=== PATIENT | female | born 1965 | race Caucasian/White ===

== ENCOUNTER 2017-07-25 10:58 | Emergency (ER) | payer OTHER ==
[~2017-07-25] VITALS: Ht 172.7 cm; Wt 68.0 kg
[2017-07-25 11:50] LABS: ABSOLUTE NEUTROPHILS 4.4 thou/uL (1.4-8.2); BASOPHILS 2.8 % (0.0-2.0); EOSINOPHILS 1.6 % (0.0-3.0); HEMATOCRIT 40.5 % (37.0-47.0); HEMOGLOBIN 13.7 gm/dL (12.0-15.0); LYMPHOCYTES 31.1 % (24.0-44.0); MCH 31.1 pg (26.0-34.0); MCHC 33.9 g/dL (28.0-37.0); MCV 91.9 fL (80.0-100.0); MONOCYTES 6.4 % (1.0-8.0); PLATELET COUNT 274 thou/uL (150-400); POLYS 58.1 % (36.0-66.0); RDW 13.6 % (10.5-14.5); WBC 7.5 thou/uL (4.0-11.0)
[2017-07-25 12:00] LABS: CALCIUM 9.4 mg/dL (8.5-10.1); CREATININE 1.1 mg/dL (0.6-1.0); POTASSIUM 3.5 mmol/L (3.5-5.1)
[2017-07-25 12:03] LABS: ALBUMIN 3.3 g/dL (3.4-5.0); TOTAL BILIRUBIN 0.4 mg/dL (<0.1-1.0); TOTAL PROTEIN 8.8 g/dL (6.4-8.2)
[2017-07-25 12:12] LABS: MANUAL DIFF NO
[2017-07-25] MEDS ORDERED: BACTRIM DS TAB1 EACH PO (12:44)
[2017-07-25 15:38] VITALS: BP 128/76
== END 2017-07-25 15:39 | disposition left against medical advice (07) ==
LOC: EDBD 10:58 → ER 10:58
PROVIDERS: Physician Assistant
DX: S81.802A Unspecified open wound, left lower leg, initial encounter (principal); S81.801A Unspecified open wound, right lower leg, initial encounter; L03.116 Cellulitis of left lower limb; L03.115 Cellulitis of right lower limb; E11.9 Type 2 diabetes mellitus without complications; B87.89 Myiasis of other sites; Z85.6 Personal history of leukemia; X58.XXXA Exposure to other specified factors, initial encounter; Y93.89 Activity, other specified; Y92.89 Other specified places as the place of occurrence of the external cause; Y99.8 Other external cause status

== ENCOUNTER 2017-07-25 19:45 | Inpatient (IN) | payer OTHER ==
[~2017-07-25] VITALS: Ht 172.7 cm; Wt 74.8 kg
--- NOTE | ~2017-07-25 | S ---
[facility] [place] [address] SURGICAL PATH RPT PROCEDURE Name: VASILIY BERKOWITZ Room #: 200-I ADM IN M.R.#: [id number] Admission: 07/25/17 Date of : 67 Discharge: Report #: [id number] Path Case #: [id number] PATHOLOGY REPORT COLLECTION DATE: 07/26/2017 RECEIVED DATE: 07/26/2017 SUBMITTING PHYS: Dr. Abdirahman Angel OTHER PHYS: Dr. Wilson Montes * AMENDED (CORRECTED) REPORT * SPECIMEN(S) RECEIVED: A.Left proximal medial calf wound B.Left anterior medial spence wound C.Left lateral lower leg wound D.Right pre-tibial leg wound E.Right medial malleolus F.Periosteum, right medial malleolus * * * * * * * * * * * * FINAL DIAGNOSIS: A. Skin and subcutaneous tissue, left proximal medial calf wound, debridement: - Marked acute inflammation, consistent with the provided history of cellulitis and wound. B. Skin and subcutaneous tissue, left anterior medial spence wound, debridement. - Marked acute inflammation, consistent with the provided history of cellulitis and wound. C. Skin and subcutaneous tissue, left lateral lower leg wound, debridement: - Marked acute inflammation, consistent with the provided history of cellulitis and wound. D. Skin and subcutaneous tissue, right pre-tibial leg wound, debridement: - Marked acute inflammation, consistent with the provided history of cellulitis and wound. E. Tissue designated as right medial malleolus, debridement: - Fragments of necrotic and fibrinopurulent material as well as hyperkeratotic squames. F. Right medial malleolus periosteum, debridement: - Fragments of soft tissue showing moderate acute and chronic inflammation, compatible with the provided history of cellulitis and necrotic wound. (IUV:rlm; 07/29/2017) COMMENT: This amendment is issued to correct the date of for this [facility] [address] [place] [address] SURGICAL PATH RPT PROCEDURE Name: VASILIY BERKOWITZ Room #: 200-I ADM IN ..#: [id number] Admission: 07/25/17 Date of : 67 Discharge: Report #: [id number] Path Case #: [id number] patient-07/30/17 PATHOLOGIST: Leona Carr M.D. REPORT ELECTRONICALLY SIGNED BY: Leona Carr M.D. DATE/TIME: 07/30/2017 15:23 * * * * * * * * * * * * GROSS PATHOLOGY: A. Received in formalin labeled "Vasiliy Berkowitz, left proximal medial calf wound" are three portions of ferreira-white possible skin ranging from 0.4 x 0.4 x 0.2 cm to 1.4 x 0.5 x 0.2 cm. The specimen is submitted entirely without sectioning in cassette A1. B. Received in formalin, labeled "Vasiliy Berkowitz, left anterior medial spence wound" is a 1.3 x 0.5 x 0.4 cm fragment of ferreira-white skin. The specimen is submitted entirely without sectioning in cassette B1. C. Received in formalin labeled "Vasiliy Berkowitz, left lateral lower leg wound" is a 1.2 x 0.6 x 0.4 cm fragment of ferreira-white skin. The specimen is bisected and submitted entirely in cassette C1. D. Received in formalin labeled "Vasiliy Berkowitz, right pretibial leg wound" are two portions of ferreira-white skin measuring 1.5 x 0.6 x 0.3 cm and 1.4 x 0.6 x 0.3 cm. Both pieces are bisected, and the specimen is submitted entirely in cassette D1. E. Received in formalin labeled "Vasiliy Berkowitz, right medial malleolus" are multiple pieces of ferreira-white skin and adherent yellow-ferreira material which measure in aggregate 1.8 x 1.3 x 0.4 cm. The specimen is serially sectioned and submitted entirely in cassette E1. F. Received in formalin, labeled "Vasiliy Berkowitz, right medial malleolus periosteum" is a 1.1 x 0.6 x 0.4 cm aggregate of ferreira-brown soft tissue fragments. The specimen is submitted entirely without sectioning in cassette F1. ([facility] [place] [facility]; 07/27/2017) CLINICAL HISTORY: Bilateral lower extremity cellulitis and necrotic wounds INITIAL CPT CODE(S): A; 96252 B; 63596 C; 68728 D; 12491 E; 78486 F; 56765 Professional services performed by [facility] at [address] [address] SURGICAL PATH RPT PROCEDURE Name: WOOVASILIYGOPAL TELLO Room #: 200-I ADM IN M.R.#: [id number] Admission: 07/25/17 Date of : 67 Discharge: Report #: [id number] Path Case #: [id number] [address], [place] [address] Technical services performed by [facility] at [address] [place] [address], [place] [address]. [facility] [address] [place] [address] PHONE: [phone] DIRECTOR: Jonny Serra M.D. * * * END OF REPORT * * *
--- NOTE | ~2017-07-25 | HC ---
[facility] [place] [address] CONSULTATION Name: VASILIY BERKOWITZ Room #: 200-I ADM IN .R.#: [id number] Admission: 07/25/17 Attend Phys: Wilson Montes DO Discharge: Date of : 67 Report #: [id number] THIS REPORT FOR: //name// CC: Nj Jenkins MD [facility] physician/PCP Wilson Montes DATE OF SERVICE: 07/27/2017 LOCATION: The patient in room [address] Montes. SUBJECTIVE: A 51-year-old white female admitted for wounds on the lower extremities. At that time, the patient was also found to be hyperglycemic with glucoses above 700. The patient has no prior history of diabetes but has noted an unknown amount of weight loss, polydipsia, polyuria and weakness over the past several months. There is a positive family history of adult diabetes, occurring in the patient's father and brother. Otherwise, the patient's prior medical history according to the patient is essentially negative, and she denies any chronic illnesses. Since admission, the patient has been treated with surgical debridement, antibiotics and sliding scale insulin with some improvement in glucose parameters. CURRENT MEDICATIONS: At the time of consultation include sliding scale insulin as mentioned above. IV antibiotics with vancomycin, enoxaparin, hydrocodone, piperacillin, alprazolam, acetaminophen, ondansetron and possibly other medication. Otherwise, the patient is unable to give any pertinent past endocrine history. OBJECTIVE: LABORATORY DATA: From earlier on this admission, glucoses were in the 700s as mentioned above. At admission, those have dropped down into the 100-300. Most recent laboratory values showed a sodium of 120, potassium 3.7, chloride 93, CO2 of 28, BUN 15, creatinine 1.1, random glucose 504, AST 22, bilirubin 0.4, calcium 8.8, alkaline phosphatase 141, ALT 24, total protein 8.8 and albumin 3.3. Hemoglobin A1c on this admission was highly elevated at 17.5. TSH 2.24. PHYSICAL EXAMINATION: GENERAL: Well-nourished, well-developed 51-year-old white female in no acute distress. The patient is alert and oriented times 3. VITAL SIGNS: Show height to be approximately 5 feet 8 inches, weight 164 pounds. The patient is afebrile, heart rate 86 and regular, blood pressure 130/84. [facility] [address] [place] [address] CONSULTATION Name: VASILIY BERKOWITZ Room #: 200-I [facility].#: [id number] Admission: 07/25/17 Attend Phys: Wilson Montes DO Discharge: Date of : 67 Report #: [id number] SKIN: Extremely loose over the upper extremities suggestive of significant prior weight loss. Skin turgor is somewhat decreased. EYES: PERRL. CHEST: Clear. HEART: Regular rhythm without murmurs, rubs or gallops. ABDOMEN: Benign without masses, tenderness or organomegaly. Bowel sounds active. EXTREMITIES: Show no edema, cyanosis or clubbing. Peripheral pulses 2+ and equal bilaterally. NEUROLOGIC: Grossly intact. ASSESSMENT: 1. Diabetes mellitus, apparently recently discovered out of control with extreme hyperglycemia and dehydration. 2. Insulin resistance and hyperinsulinemia. 3. It is difficult to believe that the patient has a positive family history of diabetes, occurring in 2 first-degree relatives and did not recognize the symptoms of diabetes over the past several months; however, she has had severe hyperglycemia long enough to exhaust her pancreas and have her A1c reach almost 18%. PLAN: 1. Will attempt to rehydrate and provide the patient with initial diet and diabetes education including mild weight reduction with 3 small well-balanced meals a day and an increased level of physical activity once the patient is capable of doing this with improvement in current ulcers. 2. Will initiate appropriate insulin therapy using lispro preprandially and glargine at bedtime in an effort to improve glucose control. The patient may have exhausted her pancreatic reserve but probably in time would benefit from decrease in insulin resistance through metformin therapy as well as institution of something to stimulate whatever endogenous insulin is available such as linagliptin. Thank you very much for this consultation. I will continue to follow the patient with you for evaluation and management of diabetes mellitus. <ELECTRONICALLY SIGNED> By: Nj Jenkins MD 07/28/17 1312 1823 [id number] Nj Jenkins MD /nt
--- NOTE | ~2017-07-25 | HC ---
[facility] [place] [address] CONSULTATION Name: VASILIY BERKOWITZ Room #: 200-I ADM IN M.R.#: [id number] Admission: 07/25/17 Attend Phys: Wilson Montes DO Discharge: Date of : 67 Report #: [id number] THIS REPORT FOR: //name// CC: [facility] physician/PCP Wilson Montes DATE OF SERVICE: 07/29/2017 ENDOCRINE PROGRESS NOTE Glucoses continued to improve. FBS lower today at 141. Highest glucose past day equals 277 at 12 o'clock. Total insulin dosage yesterday increased to 56 units. C-peptide low at 0.6. However, this could be temporary pancreatic exhaustion due to prolonged severe hyperglycemia and hopefully will improve in the future. Therefore, we will continue current oral therapy with metformin and linagliptin. <ELECTRONICALLY SIGNED> By: Nj Jenkins MD 07/30/17 1114 1107 1325 Nj Jenkins MD /nt
--- NOTE | ~2017-07-25 | HC ---
[facility] [place] [address] CONSULTATION Name: VASILIY BERKOWITZ Room #: 200-I [facility] IN M.R.#: [id number] Admission: 07/25/17 Attend Phys: Wilson Montes DO Discharge: 07/31/17 Date of : 67 Report #: [id number] THIS REPORT FOR: //name// CC: [facility] physician/PCP Wilson Montes DATE OF SERVICE: 07/31/2017 Glucoses continued to decrease allowing for further reduction in four times insulin therapy. No hypoglycemia even with improved insulin mechanics. Glucose is relatively stable and the patient is scheduled for dismissal later today. We will discharge on diet, activity as tolerated, four times monitoring if financially possible. Medications will include low dose metformin, which will need to be increased in a stepwise fashion at weekly intervals up to a maximum effective dose of 2000 mg per day as tolerated. In addition, we will continue Tradjenta, although other DPP-4 inhibitors such as Alogliptin may be less expensive. The patient will continue either lispro or aspart t.i.d. with meals, depending on which is less expensive and we will use some form of Glargine at bedtime, most likely Basaglar which will probably be less expensive than the Toujeo. The patient is receiving during her current admission. The patient to determine followup. I have recommended [facility] unless social service can provide insurance or other funding. <ELECTRONICALLY SIGNED> By: Nj Jenkins MD 08/01/17 1110 [id number] Nj Jenkins MD /nt
--- NOTE | ~2017-07-25 | HC ---
[facility] [place] [address] CONSULTATION Name: VASILIY BERKOWITZ Room #: 200-I [facility] IN M.R.#: [id number] Admission: 07/25/17 Attend Phys: Wilson oMntes DO Discharge: 07/31/17 Date of : 67 Report #: [id number] THIS REPORT FOR: //name// CC: [facility] physician/PCP Wilson Montes DATE OF SERVICE: 07/30/2017 ENDOCRINE PROGRESS NOTE Glucose continued to improve, although insulin dosage has not yet been reduced. FBS lower at 89. Highest glucose past day equals 171 at 12 o'clock. Total insulin dosage yesterday 56 units. The patient has received dietary education and will need followup diabetes education after discharge and social science teacher are not available as an inpatient. Meanwhile social work is assisting with figuring out how to obtain medications, glucose monitoring strips, etc and followup care for the patient who is self pay without insurance. <ELECTRONICALLY SIGNED> By: Nj Jenkins MD 07/31/17 2228 1117 1539 Nj Jenkins MD /nt
--- NOTE | ~2017-07-25 | EKG ---
[place] [address] [facility] [place] [address] ELECTROCARDIOGRAM REPORT Name: WOOVASILIYGOPAL TELLO Room #: 200-I ADM IN M.R.#: [id number] Admission: 07/25/17 Attend Phys: Wilson Montes DO Discharge: Date of : 67 Report #: [id number] THIS REPORT FOR: //name// [facility] Test Date: 2017-07-26 Test Time: 07:26:57 Pat Name: VASILIY BERKOWITZ Department: Room: 200 I Gender: F [employer] Coach: ANDRIY : 1965 Requested By: Robert Herrera Order Number: [id number] MD: Wilfredo Deleon Measurements Intervals [place] Rate: 88 P: 73 IA: 147 QRS: 18 QRSD: 107 T: 63 QT: 422 QTc: 511 Interpretive Statements Sinus rhythm Nonspecific ST segment abnormality Prolonged QT interval No previous ECG available for comparison Electronically Signed On 07-30-2017 8:51:02 CDT by Wilfredo Deleon [email or web address] <ELECTRONICALLY SIGNED> By: Wilfredo Deleon MD, [facility] 07/30/17 0851 0726 07 Wilfredo Deleon MD, FACC /EPI
--- NOTE | ~2017-07-25 | O ---
[facility] [place] [address] OPERATIVE REPORT Name: VASILIY BERKOWITZ Room #: 200-I [facility] IN M.R.#: [id number] Admission: 07/25/17 Attend Phys: Wilson Montes DO Discharge: 07/31/17 Date of : 67 Report #: [id number] THIS REPORT FOR: //name// CC: [facility] physician/PCP Wilson Montes DATE OF SERVICE: 07/26/2017 PREOPERATIVE DIAGNOSES: Bilateral lower extremity necrotic wounds, bilateral lower extremity cellulitis with edema, and uncontrolled diabetes mellitus. POSTOPERATIVE DIAGNOSES: Bilateral lower extremity necrotic wounds, bilateral lower extremity cellulitis with edema, and uncontrolled diabetes mellitus. SURGEON: Abdirahman Anegl MD CASHIER RECEPTIONIST: Cuauhtemoc Rodríguez, medical student. OPERATION PERFORMED: Excisional debridement with Misonix of necrotic bilateral lower extremity wounds. ANESTHESIA: General endotracheal anesthesia and local anesthetic. ESTIMATED BLOOD LOSS: 25 mL. SPECIMENS TO PATHOLOGY: Left proximal medial calf wound, left anterior medial spence wound, left lateral lower leg wound, right pretibial leg wound, right medial malleolus wound, periosteum from right medial malleolus wound. COMPLICATIONS: None. DRAINS PLACED: None. FINDINGS: Deepest tissue debrided of all wounds was a right medial malleolus periosteum. Hemostasis was obtained using electrocautery. Misonix was utilized on a high setting approximately 13 minutes to debride the wounds in addition to sharp debridement. The wound size is the right pretibial leg wound, predebridement was 4.5 x 3 cm, post-debridement was 5 cm x 3.5 cm x 0.75 cm. The right medial malleolus wound, predebridement was 2 x 1 cm; post-debridement was 3 x 2 x 0.75 cm. Left proximal medial calf wound, predebridement was 2 cm x 2.5 cm, post-debridement was 3.25 cm x 2.5 cm x 0.5 cm. Left anterior medial spence wound, predebridement was 2.5 cm x 2 cm, post-debridement was 3.5 cm x 3 cm x 1.5 cm. Left lateral lower leg, predebridement 10 x 6 cm, post-debridement 10 x 9 x 1 cm. Wounds were all packed with 0.25% Dakin's soaked gauze. INDICATION FOR PROCEDURE: The patient is a 51-year-old female patient who was [address] [address] OPERATIVE REPORT Name: VASILIY BERKOWITZ Room #: 200-I [facility] IN ..#: [id number] Admission: 07/25/17 Attend Phys: Wilson Montes DO Discharge: 07/31/17 Date of : 67 Report #: [id number] recently admitted with bilateral lower extremity necrotic wounds. She was noted to have significantly elevated blood glucose. General surgery was consulted for operative intervention regarding these necrotic wounds that had tissue, which needed to be debrided. Detailed discussion of the risks and benefits was held with the patient and all questions were answered to her satisfaction. Written informed consent was obtained. DESCRIPTION OF PROCEDURE: The patient was brought to the operating room and placed in a supine position. Timeout was taken to verify the patient's identity and to plan the procedure. Anesthesia was induced. Preoperative antibiotic was administered. The lower extremity wounds were examined and measured. There was a right pretibial leg wound, which measured 4.5 x 3 cm; a right medial malleolus wound, which measured 2 x 1 cm; a left proximal medial calf wound, which measured 2 cm x 2.5 cm; a left anterior medial spence wound, which measured 2.5 x 2 cm; and a left lateral lower leg wound measuring 10 x 6 cm. Each of these wounds were dressed initially with sharp debridement and specimens were passed off as described above. These wounds were then debrided aggressively using [employer] Fundonix ultrasonic system on a high setting for approximately 13 minutes total. Hemostasis was obtained using electrocautery at various points of oozing once tissue which oozed with bright red blood was identified. It was also noted that all of these patient's wounds showed soft tissue with changes consistent with chronic lymphedema. The wounds were measured following debridement and after hemostasis had been obtained and the pretibial leg wound measured 5 x 3.5 x 0.75 cm after debridement. The right medial malleolus wound was noted to have necrotic tissue, was extended down into the periosteum and this was debrided using a rongeur as well as a 10 blade. This was passed off for specimen as well. Post-debridement, this was measured at 3 cm x 2 cm x 0.75 cm. The left proximal medial calf wound post-debridement was measured at 3.25 x 2.5 x 0.5 cm. The left anterior medial spence wound post-debridement was measured 3.5 x 3 x 1.5 cm. The left lateral lower leg wound was measured post-debridement as 10 x 9 x 1 cm. Each of these wounds were packed with 0.25% Dakin-soaked gauze and pressure dressings in the form of ABDs and OUSMANE wraps were applied to each of these wounds. At this point, the case was ended, all instrumentation had been extracted and accounted for. All counts were correct per nursing report. The patient was then extubated and taken to the postoperative care unit in stable condition. <ELECTRONICALLY SIGNED> By: Abdirahman Angel MD 08/02/17 1043 0950 1019 Abdirahman Angel MD /nt
--- NOTE | ~2017-07-25 | HC ---
[facility] [place] [address] CONSULTATION Name: WOOVASILIY TELLO Room #: 200-I ADM IN ..#: [id number] Admission: 07/25/17 Attend Phys: Wilson Montes DO Discharge: Date of : 67 Report #: [id number] THIS REPORT FOR: //name// CC: ORIN physician/PCP Wilson Montes DATE OF SERVICE: 07/26/2017 PERSONAL PHYSICIAN: None. CHIEF COMPLAINT: Multiple lower extremity ulcerations. HISTORY OF PRESENT ILLNESS: This is a 51-year-old white female who states that for the past several months, she has been having recurrent ulcerations on her bilateral lower extremities. The patient states there was a large ulceration on her left lateral lower leg, which she thinks started out as a hematoma that she was trying to care of at home by herself. The patient noted yesterday morning that there was an increased drainage and that she had thought she had maggots in her wound. The patient came to the Emergency Department and was diagnosed as having a wound filled with maggots. I was contacted about the patient, requested they obtain a wound culture and then cleanse the wound with hydrogen peroxide to kill the maggots and requested the patient be admitted to the hospital. The patient was also found to have a blood sugar, which was almost 600. The patient prior to this did not know that she was diabetic. The patient admits to the fact that she has lost significant amount of weight over the past several months. The patient, however, refused admission initially, then returned last night to the Emergency Department at approximately 10:00 p.m. for admission at that time. The patient states that she has had chronic lower extremity edema, but has never sought any type of medical care. The patient states her last experience with a physician was when she was diagnosed with leukemia in 2008 and had a bone marrow transplant. The patient has had a history of polydipsia and polyuria associated with weight loss. The patient denies fevers or chills. I have been asked to assist in the care of the ulceration at this time. The patient states all the other ulcerations on her legs she thinks started out as "bug bites." PAST MEDICAL HISTORY: Significant for new onset diabetes mellitus, history of chronic bilateral lower extremity edema, acute leukemia, status post chemotherapy followed by bone marrow transplant in 2008. CURRENT MEDICATIONS: Were only Bactrim, which was prescribed upon the time when she was being left AMA from the Emergency Department. DRUG ALLERGIES: None. SOCIAL HISTORY: The patient smoked past several years ago, [place] [address] CONSULTATION Name: VASILIY BERKOWITZ Room #: 200-I [facility] IN ..#: [id number] Admission: 07/25/17 Attend Phys: Wilson Montes DO Discharge: Date of : 67 Report #: [id number] for many years. Denies alcohol use or illicit drug use. The patient lives independently, has no family history here in town. REVIEW OF SYSTEMS: CONSTITUTIONAL: The patient denies fevers or chills. NEUROLOGIC: The patient has overall generalized weakness, no isolated weakness in her arms or legs. EYES: No complaints. ENT: No complaints. CARDIAC: The patient has chronic lower extremity edema without chest pain or palpitation. RESPIRATORY: The patient denies shortness breath, cough or wheezes. GASTROINTESTINAL: The patient denies nausea, vomiting or abdominal pain. GENITOURINARY: The patient complains of urgency and polyuria. MUSCULOSKELETAL: No complaints. SKIN: Has multiple ulcerations on bilateral lower extremities. PHYSICAL EXAMINATION: VITAL SIGNS: Temperature 36.7, pulse 76, respirations 14, BP 136/91. GENERAL: This is an alert and oriented x 3, unkempt white female who is in no obvious distress. HEENT: Normocephalic, atraumatic. Mucous membranes are dry. Pupils are round. Sclerae are white. BACK: Nontender. LUNGS: Clear. HEART: Regular, without murmur. ABDOMEN: Soft, nontender, without organomegaly. EXTREMITIES: The patient moves all extremities spontaneously. Evaluation of the left lower extremity reveals a left medial superior calf ulceration, which measures 3.0 x 2.5 x 0.4 cm and a left medial anterior ulceration, which measures 2.4 x 2.5 x 0.5 cm and there is a left lateral calf ulceration, which measures 9.5 x 7.8 x 1.0 cm. All the wound beds are yellowish slough filled with seropurulent drainage with mild odor noted. Ulcer is mildly erythematous and minimally tender to palpation. There is no significant tunneling, tracking or undermining of any of these ulcerations. Evaluation of right lower extremity reveals pretibial ulceration, which measures 3.5 x 4.2 x 0.4 cm, the right medial ankle ulcer x 2, which measures 1.8 x 1.2 x 1.0 approximately and then distally is an ulcer, which measures 0.5 x 0.5 x 1.0 cm. These 2 were 100% slough filled with seropurulent drainage noted with mild odor and mild erythema noted in the surrounding tissue. Distal pulses are 2+ dorsalis pedis and posterior tibial. Bilateral heels are intact. Bilateral lower extremities with 2+ edema. NEUROLOGIC: Cranial nerves 2-12 grossly intact. Motor and sensory grossly intact. LABORATORY DATA: Electrolytes: Sodium is 129, BUN 15, creatinine 1.1, glucose [facility] [address] [place] [address] CONSULTATION Name: VASILIY BERKOWITZ Room #: 200-I ADM IN .R.#: [id number] Admission: 07/25/17 Attend Phys: Wilson Montes DO Discharge: Date of : 67 Report #: [id number] is 584. C-reactive protein is 11.2, albumin is 3.3. White count 7.5, hemoglobin 13.7. WOUND CARE COURSE: I spoke at length with the patient. At this time, the patient is scheduled for surgery this morning for further surgical debridement of the ulcerations on her legs by Dr. Angel. Post surgery, we will plan on Dakin's quarter strength solution to be placed twice daily to the area, covered with ABD, Kerlix and tape. We will plan on this for over a week and we will see she is receiving IV antibiotics and hopefully, social work can get involved about possibly giving her some at least Medicare pending or possibly she can get some assistance with home health nursing. IMPRESSION: 1. Numerous chronic ulcerations, bilateral lower extremities with measurements as above all of which appear to be superficially infected. 2. Cellulitis, bilateral lower extremities, left greater than right. 3. Chronic bilateral lower extremity edema. 4. Protein calorie malnutrition -- mild with albumin 3.3. 5. New onset diabetes mellitus. 6. History of leukemia, status post bone marrow transplant. 7. Generalized debility. PLAN: Described as above for dressing changes. We will continue to follow the patient for her wound care. We will also make sure we maximize the patient's oral supplementation of protein for healing. I would encourage the patient on this as well. Pattern Molder will see the patient as well for further dietary instructions on enhanced protein as well as dietary control for her diabetes. Make sure we try to maximize the patient's physical and occupational therapy as possible for strengthening and we will work on discharge planning. By: [id number] Moise Sheppard MD /nt
--- NOTE | ~2017-07-25 | HC ---
[facility] [place] [address] CONSULTATION Name: VASILIY BERKOWITZ Room #: 200-I ADM IN M.R.#: [id number] Admission: 07/25/17 Attend Phys: Wilson Montes DO Discharge: Date of : 67 Report #: [id number] THIS REPORT FOR: //name// CC: [facility] physician/PCP Wilson Montes DATE OF SERVICE: 07/28/2017 ENDOCRINE PROGRESS NOTE The patient now on a calorie restricted diet and oral hydration. Metformin and linagliptin begun to lower insulin requirement. C-peptide is still pending. Glucoses significantly lower with additional daily lispro and switching to bedtime Glargine for true basal insulin coverage. FBS significantly lower at 159, which is probably the first time glucose has been that low in many months. It will, however, take significant length of time to fully readjust. Q.i.d. insulin regimen in an effort to optimize glucose control and prevent subsequent diabetes complications. <ELECTRONICALLY SIGNED> By: Nj Jenkins MD 07/29/17 1102 [id number] Nj Jenkins MD /nt
[~2017-07-25 19:45] MED LIST: BACTRIM DS TAB1 EACH PO
[2017-07-25 19:47] VITALS: BP 121/90
[2017-07-25 21:15] LABS: ABG SAMPLE TYPE VENOUS; BE(vivo) 7.3 mmol/L (-2 to +3); HCO3 33.4 mmol/L (22.0-26.0); LACTATE 1.31 mmol/L (0.5-2.0); O2(CT) 8.8 mL/dL (15.0-23.0); PCO2 VENOUS 53.1 mmHg (41.0-51.0); PO2 VENOUS 25.8 mmHg (35.0-45.0)
[2017-07-25 21:27] LABS: CALCIUM 8.8 mg/dL (8.5-10.1); CREATININE 1.1 mg/dL (0.6-1.0); POTASSIUM 3.7 mmol/L (3.5-5.1)
[2017-07-25 21:32] VITALS: BP 130/88
[2017-07-25 23:51] VITALS: BP 139/100
[2017-07-26 03:04] VITALS: BP 144/97
[2017-07-26 10:28] VITALS: BP 136/91
[2017-07-26 19:04] VITALS: BP 110/73
[2017-07-26 23:30] VITALS: BP 118/78
[2017-07-27 02:08] LABS: GLYCOHEMOGLOBIN (HGB A1C) 17.5 % (4.8-5.6)
[2017-07-27 04:13] VITALS: BP 145/99
[2017-07-27 07:22] VITALS: BP 144/92
[2017-07-27 12:20] VITALS: BP 110/86
[2017-07-27 15:41] VITALS: BP 131/81
[2017-07-27 19:19] VITALS: BP 139/87
[2017-07-28 03:58] LABS: CALCIUM 8.8 mg/dL (8.5-10.1); CREATININE 0.7 mg/dL (0.6-1.0)
[2017-07-28 04:03] LABS: POTASSIUM 2.4 mmol/L (3.5-5.1)
[2017-07-28 04:06] LABS: ABSOLUTE NEUTROPHILS 3.1 thou/uL (1.4-8.2); BASOPHILS 1.3 % (0.0-2.0); EOSINOPHILS 2.5 % (0.0-3.0); HEMATOCRIT 41.9 % (37.0-47.0); LYMPHOCYTES 41.9 % (24.0-44.0); MCH 30.4 pg (26.0-34.0); MCHC 33.5 g/dL (28.0-37.0); MCV 90.6 fL (80.0-100.0); MONOCYTES 8.2 % (1.0-8.0); PLATELET COUNT 287 thou/uL (150-400); POLYS 46.1 % (36.0-66.0); RBC 4.62 mil/uL (4.20-5.00); RDW 13.6 % (10.5-14.5); WBC 6.8 thou/uL (4.0-11.0)
[2017-07-28 04:11] LABS: MANUAL DIFF NO
[2017-07-28 04:18] VITALS: BP 167/108
[2017-07-28 07:19] VITALS: BP 141/97
[2017-07-28 11:54] VITALS: BP 127/83
[2017-07-28 12:20] LABS: MAGNESIUM 1.5 mg/dL (1.8-2.4); POTASSIUM 3.2 mmol/L (3.5-5.1)
[2017-07-28 16:46] VITALS: BP 143/97
[2017-07-28 17:30] LABS: MAGNESIUM 1.5 mg/dL (1.8-2.4); POTASSIUM 3.5 mmol/L (3.5-5.1)
[2017-07-28 19:16] VITALS: BP 125/86
[2017-07-29 03:07] VITALS: BP 143/102
[2017-07-29 07:37] VITALS: BP 125/83
[2017-07-29 12:36] VITALS: BP 107/78
[2017-07-29 16:20] VITALS: BP 132/92
[2017-07-29 19:24] VITALS: BP 142/96
[2017-07-30 03:23] VITALS: BP 137/90
[2017-07-30 07:15] VITALS: BP 117/81
[2017-07-30 15:01] VITALS: BP 158/99
[2017-07-30 20:46] VITALS: BP 125/77
[2017-07-31 03:49] VITALS: BP 131/83
[2017-07-31 06:57] VITALS: BP 104/72
[2017-07-31] MEDS ORDERED: COLACE 100 MG100 MG PO (09:39)
[2017-07-31] MEDS ORDERED: LEVAQUIN 500 M500 M1 PO (09:39)
[2017-07-31] MEDS ORDERED: TRADJENTA5 MG PO (09:39)
[2017-07-31] MEDS ORDERED: GLUCOPHAGE1000 MG PO (09:39)
[2017-07-31] MEDS ORDERED: HYDROCODON-ACE1 EAC7 PO (09:39)
[2017-07-31 12:10] VITALS: BP 104/72
[2017-07-31] MEDS ORDERED: NOVOLOG100 UNIT/1 IV (13:01)
[2017-07-31] MEDS ORDERED: NOVOLOG100 UNIT/1 SUBQ ×3 (13:02→13:07)
[2017-07-31] MEDS ORDERED: BASAGLAR K100 UNIT/1 SUBQ (13:06)
[2017-07-31 14:50] VITALS: BP 104/72
== END 2017-07-31 14:30 | disposition home or self-care (01) | DRG 623 ==
LOC: ER 19:45 → EROBS 20:27 → 2N 20:27
PROVIDERS: Family Medicine; Nurse Practitioner Acute Care; Physician Assistant
PROC: 0JBP0ZZ Excision of Left Lower Leg Subcutaneous Tissue and Fascia, Open Approach (ICD-10-PCS; principal; 2017-07-26)
PROC: 0JBN0ZZ Excision of Right Lower Leg Subcutaneous Tissue and Fascia, Open Approach (ICD-10-PCS; principal; 2017-07-26)
DX: E11.622 Type 2 diabetes mellitus with other skin ulcer (principal); L03.116 Cellulitis of left lower limb; L03.115 Cellulitis of right lower limb; E46 Unspecified protein-calorie malnutrition; L97.229 Non-pressure chronic ulcer of left calf with unspecified severity; L97.219 Non-pressure chronic ulcer of right calf with unspecified severity; Z94.81 Bone marrow transplant status; E11.65 Type 2 diabetes mellitus with hyperglycemia; I89.0 Lymphedema, not elsewhere classified; Z85.6 Personal history of leukemia; Z92.21 Personal history of antineoplastic chemotherapy; Z79.899 Other long term (current) drug therapy; Z68.25 Body mass index [BMI] 25.0-25.9, adult
CPT/HCPCS: 10081; 50010; 50101; 50386; 53353; 53354; 62110; 62900; 70005

== ENCOUNTER → 2017-08-20 | Outpatient (CLI) | payer OTHER ==
[~2017-08-20] MED LIST changes: +BASAGLAR K100 UNIT/1 SUBQ; +COLACE 100 MG100 MG PO; +GLUCOPHAGE1000 MG PO; +HYDROCODON-ACE1 EAC7 PO; +LEVAQUIN 500 M500 M1 PO; +NOVOLOG100 UNIT/1 IV; +NOVOLOG100 UNIT/1 SUBQ; +TRADJENTA5 MG PO
== END ==
LOC: HYPER 08-12 07:50
DX: E11.622 Type 2 diabetes mellitus with other skin ulcer (principal); L97.811 Non-pressure chronic ulcer of other part of right lower leg limited to breakdown of skin; L97.821 Non-pressure chronic ulcer of other part of left lower leg limited to breakdown of skin; R60.0 Localized edema; E44.1 Mild protein-calorie malnutrition; I89.0 Lymphedema, not elsewhere classified; Z87.891 Personal history of nicotine dependence

== ENCOUNTER → 2018-01-10 | Outpatient (CLI) | payer OTHER ==
[~2018-01-10] MED LIST changes: +AUGMENTIN 875-1 EACH PO; +CIPROFLOXACIN250 M2 PO
[2018-01-10 16:57] VITALS: BP 103/75
== END ==
LOC: OPONC 09:29
DX: E11.621 Type 2 diabetes mellitus with foot ulcer (principal); M86.8X7 Other osteomyelitis, ankle and foot; L97.519 Non-pressure chronic ulcer of other part of right foot with unspecified severity
CPT/HCPCS: 95000

== ENCOUNTER → 2018-01-14 | Outpatient (CLI) | payer OTHER ==
[2018-01-14 15:36] VITALS: BP 128/85
[2018-01-14 15:41] LABS: HEMATOCRIT 32.3 % (37.0-47.0); HEMOGLOBIN 10.8 gm/dL (12.0-15.0); MCH 29.7 pg (26.0-34.0); MCHC 33.3 g/dL (28.0-37.0); MCV 89.3 fL (80.0-100.0); RBC 3.61 mil/uL (4.20-5.00); RDW 14.5 % (10.5-14.5); WBC 7.3 thou/uL (4.0-11.0)
[2018-01-14 15:55] LABS: ALBUMIN 2.2 g/dL (3.4-5.0); CALCIUM 8.9 mg/dL (8.5-10.1); CREATININE 0.9 mg/dL (0.6-1.0); POTASSIUM 3.2 mmol/L (3.5-5.1); TOTAL BILIRUBIN 0.3 mg/dL (<0.1-1.0); TOTAL PROTEIN 8.4 g/dL (6.4-8.2)
== END ==
LOC: OPONC 03:35
PROVIDERS: Specialist
DX: E11.69 Type 2 diabetes mellitus with other specified complication (principal); E11.621 Type 2 diabetes mellitus with foot ulcer; L97.519 Non-pressure chronic ulcer of other part of right foot with unspecified severity; M86.8X7 Other osteomyelitis, ankle and foot
CPT/HCPCS: 95000

== ENCOUNTER → 2018-01-15 | Outpatient (CLI) | payer OTHER ==
[2018-01-15 14:10] VITALS: BP 129/87
== END ==
LOC: OPONC 00:48
DX: E11.621 Type 2 diabetes mellitus with foot ulcer (principal); E11.69 Type 2 diabetes mellitus with other specified complication; L97.519 Non-pressure chronic ulcer of other part of right foot with unspecified severity; M86.8X7 Other osteomyelitis, ankle and foot
CPT/HCPCS: 95000

== ENCOUNTER → 2018-01-17 | Outpatient (CLI) | payer OTHER ==
[2018-01-17 13:54] VITALS: BP 145/95
== END ==
LOC: OPONC 09:26
DX: E11.69 Type 2 diabetes mellitus with other specified complication (principal); E11.621 Type 2 diabetes mellitus with foot ulcer; M86.8X7 Other osteomyelitis, ankle and foot; L97.519 Non-pressure chronic ulcer of other part of right foot with unspecified severity
CPT/HCPCS: 95000

== ENCOUNTER → 2018-01-22 | Outpatient (CLI) | payer OTHER ==
[2018-01-22 14:40] VITALS: BP 115/85
[2018-01-22 15:07] LABS: HEMATOCRIT 34.2 % (37.0-47.0); HEMOGLOBIN 11.5 gm/dL (12.0-15.0); MCH 29.8 pg (26.0-34.0); MCHC 33.6 g/dL (28.0-37.0); MCV 88.7 fL (80.0-100.0); RBC 3.86 mil/uL (4.20-5.00); RDW 14.5 % (10.5-14.5); WBC 9.6 thou/uL (4.0-11.0)
[2018-01-22 15:22] LABS: ALBUMIN 2.6 g/dL (3.4-5.0); CALCIUM 9.4 mg/dL (8.5-10.1); POTASSIUM 3.6 mmol/L (3.5-5.1); TOTAL BILIRUBIN 0.3 mg/dL (<0.1-1.0); TOTAL PROTEIN 9.2 g/dL (6.4-8.2)
== END ==
LOC: OPONC 00:19
PROVIDERS: Specialist
DX: E11.69 Type 2 diabetes mellitus with other specified complication (principal); E11.621 Type 2 diabetes mellitus with foot ulcer; M86.8X7 Other osteomyelitis, ankle and foot; L97.519 Non-pressure chronic ulcer of other part of right foot with unspecified severity
CPT/HCPCS: 95000

== ENCOUNTER → 2018-01-24 | Outpatient (CLI) | payer OTHER ==
[2018-01-24 10:55] VITALS: BP 137/89
== END ==
LOC: OPONC 00:29
DX: E11.69 Type 2 diabetes mellitus with other specified complication (principal); E11.621 Type 2 diabetes mellitus with foot ulcer; M86.8X7 Other osteomyelitis, ankle and foot; L97.519 Non-pressure chronic ulcer of other part of right foot with unspecified severity
CPT/HCPCS: 95000

== ENCOUNTER → 2018-01-27 | Outpatient (CLI) | payer OTHER ==
[2018-01-27 16:18] VITALS: BP 133/82
== END ==
LOC: OPONC 01-18 04:55
DX: E11.621 Type 2 diabetes mellitus with foot ulcer (principal); L97.519 Non-pressure chronic ulcer of other part of right foot with unspecified severity; E11.69 Type 2 diabetes mellitus with other specified complication; M86.8X7 Other osteomyelitis, ankle and foot
CPT/HCPCS: 95000

== ENCOUNTER → 2018-01-28 | Outpatient (CLI) | payer OTHER ==
[2018-01-28 14:31] VITALS: BP 135/92
== END ==
LOC: OPONC 01-19 00:52
DX: E11.621 Type 2 diabetes mellitus with foot ulcer (principal); L97.519 Non-pressure chronic ulcer of other part of right foot with unspecified severity; E11.69 Type 2 diabetes mellitus with other specified complication; M86.8X7 Other osteomyelitis, ankle and foot
CPT/HCPCS: 95000

== ENCOUNTER → 2018-01-31 | Outpatient (CLI) | payer OTHER ==
[2018-01-31 13:07] VITALS: BP 135/81
== END ==
LOC: OPONC 00:45
DX: E11.621 Type 2 diabetes mellitus with foot ulcer (principal); L97.519 Non-pressure chronic ulcer of other part of right foot with unspecified severity; E11.69 Type 2 diabetes mellitus with other specified complication; M86.8X7 Other osteomyelitis, ankle and foot
CPT/HCPCS: 95000

== ENCOUNTER → 2018-02-03 | Outpatient (CLI) | payer OTHER ==
[2018-02-03 15:38] VITALS: BP 129/87
== END ==
LOC: OPONC 01:36
DX: E11.621 Type 2 diabetes mellitus with foot ulcer (principal); L97.519 Non-pressure chronic ulcer of other part of right foot with unspecified severity; E11.69 Type 2 diabetes mellitus with other specified complication; M86.8X7 Other osteomyelitis, ankle and foot
CPT/HCPCS: 95000

== ENCOUNTER → 2018-02-04 | Outpatient (CLI) | payer OTHER ==
[2018-02-04 15:44] VITALS: BP 137/90
== END ==
LOC: OPONC 02:15
DX: E11.621 Type 2 diabetes mellitus with foot ulcer (principal); L97.519 Non-pressure chronic ulcer of other part of right foot with unspecified severity; E11.69 Type 2 diabetes mellitus with other specified complication; M86.8X7 Other osteomyelitis, ankle and foot
CPT/HCPCS: 95000

== ENCOUNTER → 2018-02-05 | Outpatient (CLI) | payer OTHER ==
[2018-02-05 15:32] VITALS: BP 142/89
== END ==
LOC: OPONC 02:32
DX: E11.69 Type 2 diabetes mellitus with other specified complication (principal); E11.621 Type 2 diabetes mellitus with foot ulcer; L97.519 Non-pressure chronic ulcer of other part of right foot with unspecified severity; M86.8X7 Other osteomyelitis, ankle and foot
CPT/HCPCS: 95000

== ENCOUNTER → 2018-02-06 | Outpatient (CLI) | payer OTHER ==
[2018-02-06 14:10] VITALS: BP 133/88
[2018-02-06 14:28] LABS: HEMATOCRIT 32.7 % (37.0-47.0); HEMOGLOBIN 10.9 gm/dL (12.0-15.0); MCH 29.4 pg (26.0-34.0); MCHC 33.4 g/dL (28.0-37.0); MCV 87.8 fL (80.0-100.0); RBC 3.72 mil/uL (4.20-5.00); WBC 8.5 thou/uL (4.0-11.0)
[2018-02-06 14:51] LABS: ALBUMIN 2.5 g/dL (3.4-5.0); CREATININE 0.9 mg/dL (0.6-1.0); POTASSIUM 3.6 mmol/L (3.5-5.1); TOTAL BILIRUBIN 0.2 mg/dL (<0.1-1.0); TOTAL PROTEIN 8.7 g/dL (6.4-8.2)
== END ==
LOC: OPONC 01:42
PROVIDERS: Specialist
DX: E11.69 Type 2 diabetes mellitus with other specified complication (principal); M86.8X7 Other osteomyelitis, ankle and foot; E11.621 Type 2 diabetes mellitus with foot ulcer; L97.519 Non-pressure chronic ulcer of other part of right foot with unspecified severity
CPT/HCPCS: 95000

== ENCOUNTER → 2018-02-07 | Outpatient (CLI) | payer OTHER ==
[2018-02-07 12:27] VITALS: BP 130/88
== END ==
LOC: OPONC 00:34
DX: E11.621 Type 2 diabetes mellitus with foot ulcer (principal); L97.519 Non-pressure chronic ulcer of other part of right foot with unspecified severity; E11.69 Type 2 diabetes mellitus with other specified complication; M86.8X7 Other osteomyelitis, ankle and foot
CPT/HCPCS: 95000

== ENCOUNTER → 2018-02-09 | Outpatient (CLI) | payer OTHER | LOC: OPONC 08:00 | DX: E11.621 Type 2 diabetes mellitus with foot ulcer (principal); L97.519 Non-pressure chronic ulcer of other part of right foot with unspecified severity; E11.69 Type 2 diabetes mellitus with other specified complication; M86.8X7 Other osteomyelitis, ankle and foot | CPT/HCPCS: 95000 ==

== ENCOUNTER → 2018-02-10 | Outpatient (CLI) | payer OTHER ==
[2018-02-10 14:52] VITALS: BP 142/91
== END ==
LOC: OPONC 01:29
DX: E11.621 Type 2 diabetes mellitus with foot ulcer (principal); L97.519 Non-pressure chronic ulcer of other part of right foot with unspecified severity; E11.69 Type 2 diabetes mellitus with other specified complication; M86.8X7 Other osteomyelitis, ankle and foot
CPT/HCPCS: 95000

== ENCOUNTER → 2018-02-11 | Outpatient (CLI) | payer OTHER ==
[2018-02-11 15:02] VITALS: BP 139/94
== END ==
LOC: OPONC 01-21 09:09
DX: E11.621 Type 2 diabetes mellitus with foot ulcer (principal); L97.519 Non-pressure chronic ulcer of other part of right foot with unspecified severity; E11.69 Type 2 diabetes mellitus with other specified complication; M86.8X7 Other osteomyelitis, ankle and foot
CPT/HCPCS: 95000

== ENCOUNTER → 2018-02-12 | Outpatient (CLI) | payer OTHER ==
[2018-02-12 14:45] VITALS: BP 135/89
== END ==
LOC: OPONC 07:28
DX: E11.621 Type 2 diabetes mellitus with foot ulcer (principal); L97.519 Non-pressure chronic ulcer of other part of right foot with unspecified severity; E11.69 Type 2 diabetes mellitus with other specified complication; M86.8X7 Other osteomyelitis, ankle and foot
CPT/HCPCS: 95000

== ENCOUNTER → 2018-02-13 | Outpatient (CLI) | payer OTHER ==
[2018-02-13 11:20] VITALS: BP 121/82
[2018-02-13 12:44] LABS: HEMATOCRIT 30.7 % (37.0-47.0); HEMOGLOBIN 10.2 gm/dL (12.0-15.0); MCH 28.8 pg (26.0-34.0); MCHC 33.1 g/dL (28.0-37.0); MCV 87.1 fL (80.0-100.0); RBC 3.52 mil/uL (4.20-5.00); RDW 14.6 % (10.5-14.5); WBC 7.4 thou/uL (4.0-11.0)
[2018-02-13 13:09] LABS: ALBUMIN 2.4 g/dL (3.4-5.0); CALCIUM 8.9 mg/dL (8.5-10.1); CREATININE 0.8 mg/dL (0.6-1.0); POTASSIUM 3.2 mmol/L (3.5-5.1); TOTAL BILIRUBIN 0.1 mg/dL (<0.1-1.0); TOTAL PROTEIN 8.6 g/dL (6.4-8.2)
== END ==
LOC: OPONC 00:11
PROVIDERS: Specialist
DX: E11.621 Type 2 diabetes mellitus with foot ulcer (principal); L97.519 Non-pressure chronic ulcer of other part of right foot with unspecified severity; E11.69 Type 2 diabetes mellitus with other specified complication; M86.8X7 Other osteomyelitis, ankle and foot
CPT/HCPCS: 95000

== ENCOUNTER → 2018-02-17 | Outpatient (CLI) | payer SELFPAY ==
[2018-02-17 15:10] VITALS: BP 141/67
== END ==
LOC: MRI 00:14 → OPONC 00:14
DX: E11.621 Type 2 diabetes mellitus with foot ulcer (principal); L97.519 Non-pressure chronic ulcer of other part of right foot with unspecified severity; E11.69 Type 2 diabetes mellitus with other specified complication; M86.8X7 Other osteomyelitis, ankle and foot; M79.89 Other specified soft tissue disorders
CPT/HCPCS: 95000

== ENCOUNTER → 2018-02-18 | Outpatient (CLI) | payer OTHER ==
[2018-02-18 11:30] VITALS: BP 145/95
== END ==
LOC: OPONC 00:15
DX: E11.621 Type 2 diabetes mellitus with foot ulcer (principal); L97.519 Non-pressure chronic ulcer of other part of right foot with unspecified severity; E11.69 Type 2 diabetes mellitus with other specified complication; M86.8X7 Other osteomyelitis, ankle and foot
CPT/HCPCS: 95000

== ENCOUNTER → 2018-02-19 | Outpatient (CLI) | payer OTHER ==
[2018-02-19 15:50] VITALS: BP 134/81
== END ==
LOC: OPONC 02-14 00:53
DX: E11.621 Type 2 diabetes mellitus with foot ulcer (principal); L97.519 Non-pressure chronic ulcer of other part of right foot with unspecified severity; E11.69 Type 2 diabetes mellitus with other specified complication; M86.8X7 Other osteomyelitis, ankle and foot
CPT/HCPCS: 95000

== ENCOUNTER → 2018-02-20 | Outpatient (CLI) | payer OTHER ==
[2018-02-20 11:19] LABS: HEMATOCRIT 30.1 % (37.0-47.0); HEMOGLOBIN 9.9 gm/dL (12.0-15.0); MCH 28.5 pg (26.0-34.0); MCHC 32.8 g/dL (28.0-37.0); MCV 86.9 fL (80.0-100.0); RBC 3.46 mil/uL (4.20-5.00); RDW 15.1 % (10.5-14.5)
[2018-02-20 11:38] LABS: ALBUMIN 2.5 g/dL (3.4-5.0); CREATININE 0.9 mg/dL (0.6-1.0); POTASSIUM 3.1 mmol/L (3.5-5.1); TOTAL BILIRUBIN 0.1 mg/dL (<0.1-1.0); TOTAL PROTEIN 8.5 g/dL (6.4-8.2)
[2018-02-20 12:21] VITALS: BP 140/85
== END ==
LOC: OPONC 01:03
PROVIDERS: Specialist
DX: E11.621 Type 2 diabetes mellitus with foot ulcer (principal); L97.519 Non-pressure chronic ulcer of other part of right foot with unspecified severity; E11.69 Type 2 diabetes mellitus with other specified complication; M86.8X7 Other osteomyelitis, ankle and foot
CPT/HCPCS: 95000

== ENCOUNTER → 2018-02-22 | Outpatient (CLI) | payer OTHER | LOC: OPONC 13:16 | DX: E11.621 Type 2 diabetes mellitus with foot ulcer (principal); E11.69 Type 2 diabetes mellitus with other specified complication; M86.8X7 Other osteomyelitis, ankle and foot; L97.519 Non-pressure chronic ulcer of other part of right foot with unspecified severity | CPT/HCPCS: 95000 ==

== ENCOUNTER → 2018-02-23 | Outpatient (CLI) | payer OTHER | LOC: OPONC 13:28 | DX: E11.621 Type 2 diabetes mellitus with foot ulcer (principal); E11.69 Type 2 diabetes mellitus with other specified complication; L97.519 Non-pressure chronic ulcer of other part of right foot with unspecified severity; M86.8X7 Other osteomyelitis, ankle and foot | CPT/HCPCS: 95000 ==

== ENCOUNTER → 2018-02-24 | Outpatient (CLI) | payer OTHER ==
[2018-02-24 15:06] VITALS: BP 131/81
== END ==
LOC: OPONC 08:36
DX: E11.621 Type 2 diabetes mellitus with foot ulcer (principal); L97.519 Non-pressure chronic ulcer of other part of right foot with unspecified severity; E11.69 Type 2 diabetes mellitus with other specified complication; M86.8X7 Other osteomyelitis, ankle and foot
CPT/HCPCS: 95000

== ENCOUNTER → 2018-02-25 | Outpatient (CLI) | payer OTHER ==
[2018-02-25 14:20] VITALS: BP 121/80
== END ==
LOC: OPONC 02-21 01:37
DX: E11.621 Type 2 diabetes mellitus with foot ulcer (principal); L97.519 Non-pressure chronic ulcer of other part of right foot with unspecified severity; E11.69 Type 2 diabetes mellitus with other specified complication; M86.8X7 Other osteomyelitis, ankle and foot
CPT/HCPCS: 95000

== ENCOUNTER → 2018-02-26 | Outpatient (CLI) | payer OTHER ==
[2018-02-26 14:20] VITALS: BP 128/86
== END ==
LOC: OPONC 00:16
DX: E11.621 Type 2 diabetes mellitus with foot ulcer (principal); L97.519 Non-pressure chronic ulcer of other part of right foot with unspecified severity; E11.69 Type 2 diabetes mellitus with other specified complication; M86.8X7 Other osteomyelitis, ankle and foot
CPT/HCPCS: 95000

== ENCOUNTER → 2018-02-27 | Outpatient (CLI) | payer OTHER ==
[2018-02-27 14:40] LABS: HEMATOCRIT 24.5 % (37.0-47.0); MCH 28.7 pg (26.0-34.0); MCHC 32.8 g/dL (28.0-37.0); MCV 87.5 fL (80.0-100.0); RBC 2.8 mil/uL (4.20-5.00); RDW 15.2 % (10.5-14.5); WBC 5.8 thou/uL (4.0-11.0)
[2018-02-27 14:55] LABS: ALBUMIN 2.1 g/dL (3.4-5.0); CREATININE 0.6 mg/dL (0.6-1.0); TOTAL BILIRUBIN 0.2 mg/dL (<0.1-1.0); TOTAL PROTEIN 6.7 g/dL (6.4-8.2)
[2018-02-27 15:05] VITALS: BP 129/90
== END ==
LOC: OPONC 00:04
PROVIDERS: Specialist
DX: E11.621 Type 2 diabetes mellitus with foot ulcer (principal); L97.519 Non-pressure chronic ulcer of other part of right foot with unspecified severity; E11.69 Type 2 diabetes mellitus with other specified complication; M86.8X7 Other osteomyelitis, ankle and foot
CPT/HCPCS: 95000

== ENCOUNTER → 2018-03-03 | Outpatient (CLI) | payer OTHER ==
[2018-03-03 14:36] VITALS: BP 144/90
== END ==
LOC: OPONC 10:07
DX: E11.621 Type 2 diabetes mellitus with foot ulcer (principal); L97.519 Non-pressure chronic ulcer of other part of right foot with unspecified severity; E11.69 Type 2 diabetes mellitus with other specified complication; M86.8X7 Other osteomyelitis, ankle and foot
CPT/HCPCS: 95000

== ENCOUNTER → 2018-03-04 | Outpatient (CLI) | payer OTHER ==
[2018-03-04 14:20] VITALS: BP 141/89
== END ==
LOC: OPONC 00:22
DX: E11.621 Type 2 diabetes mellitus with foot ulcer (principal); L97.519 Non-pressure chronic ulcer of other part of right foot with unspecified severity; E11.69 Type 2 diabetes mellitus with other specified complication; M86.8X7 Other osteomyelitis, ankle and foot
CPT/HCPCS: 95000

== ENCOUNTER → 2018-03-05 | Outpatient (CLI) | payer OTHER ==
[2018-03-05 14:00] VITALS: BP 139/91
[2018-03-05 14:19] LABS: HEMATOCRIT 32.3 % (37.0-47.0); HEMOGLOBIN 10.7 gm/dL (12.0-15.0); MCH 28.6 pg (26.0-34.0); MCHC 33.2 g/dL (28.0-37.0); MCV 86.1 fL (80.0-100.0); RBC 3.75 mil/uL (4.20-5.00); RDW 15.5 % (10.5-14.5); WBC 8.9 thou/uL (4.0-11.0)
[2018-03-05 14:34] LABS: ALBUMIN 2.9 g/dL (3.4-5.0); CALCIUM 9.2 mg/dL (8.5-10.1); CREATININE 0.7 mg/dL (0.6-1.0); POTASSIUM 3.3 mmol/L (3.5-5.1); TOTAL BILIRUBIN 0.3 mg/dL (<0.1-1.0); TOTAL PROTEIN 8.8 g/dL (6.4-8.2)
== END ==
LOC: OPONC 03-01 10:20
PROVIDERS: Specialist
DX: E11.621 Type 2 diabetes mellitus with foot ulcer (principal); E11.69 Type 2 diabetes mellitus with other specified complication; L97.519 Non-pressure chronic ulcer of other part of right foot with unspecified severity; M86.8X7 Other osteomyelitis, ankle and foot
CPT/HCPCS: 95000

== ENCOUNTER → 2018-03-06 | Outpatient (CLI) | payer OTHER ==
[2018-03-06 11:30] VITALS: BP 142/74
== END ==
LOC: OPONC 02:04
DX: E11.621 Type 2 diabetes mellitus with foot ulcer (principal); L97.519 Non-pressure chronic ulcer of other part of right foot with unspecified severity; E11.69 Type 2 diabetes mellitus with other specified complication; M86.8X7 Other osteomyelitis, ankle and foot
CPT/HCPCS: 95000

== ENCOUNTER → 2018-03-07 | Outpatient (CLI) | payer OTHER ==
[2018-03-07 11:00] VITALS: BP 148/89
[2018-03-07 11:20] VITALS: BP 148/89
== END ==
LOC: OPONC 01:48
DX: E11.621 Type 2 diabetes mellitus with foot ulcer (principal); L97.519 Non-pressure chronic ulcer of other part of right foot with unspecified severity; E11.69 Type 2 diabetes mellitus with other specified complication; M86.8X7 Other osteomyelitis, ankle and foot
CPT/HCPCS: 95000

== ENCOUNTER → 2018-04-23 | Outpatient (CLI) | payer OTHER ==
[2018-04-23 10:40] VITALS: BP 133/85
[2018-04-23 11:20] LABS: HEMATOCRIT 37.4 % (37.0-47.0); HEMOGLOBIN 12.6 gm/dL (12.0-15.0); MCH 29.9 pg (26.0-34.0); MCHC 33.8 g/dL (28.0-37.0); MCV 88.5 fL (80.0-100.0); RBC 4.23 mil/uL (4.20-5.00); RDW 15.9 % (10.5-14.5); WBC 5.1 thou/uL (4.0-11.0)
[2018-04-23 11:41] LABS: ALBUMIN 3.5 g/dL (3.4-5.0); CALCIUM 9.3 mg/dL (8.5-10.1); CREATININE 0.9 mg/dL (0.6-1.0); POTASSIUM 3.7 mmol/L (3.5-5.1); TOTAL BILIRUBIN 0.3 mg/dL (<0.1-1.0); TOTAL PROTEIN 8.5 g/dL (6.4-8.2)
== END ==
LOC: OPONC 04-16 00:23
PROVIDERS: Specialist
DX: M86.8X7 Other osteomyelitis, ankle and foot (principal)
CPT/HCPCS: 91016